=== PATIENT | male | born 1995 ===

== ENCOUNTER 2021-07-12 23:25 | Emergency (ER) | payer BC, OTHER ==
[~2021-07-12] VITALS: Ht 175.3 cm; Wt 74.8 kg
[~2021-07-12 23:25] MED LIST: ALBU18HF2 INH; ALBU6.7H9 INH; Acetaminophen PO; BUDE10.2 INH; DIVA500T4 PO; Gabapentin PO; HYDR-3895 PO; Ibuprofen PO; QUET25TA PO
[2021-07-13] MEDS ORDERED: IV NORMAL SALINE 1000 ML BAG IV ONE
[2021-07-13 00:14] LABS: HEMATOCRIT 40.5 % (36.7-47.1); MEAN CORPUSCULAR HEMOGLOBIN 29.6 uug (23.8-33.4); MEAN CORPUSCULAR VOLUME 87.5 fL (73.0-96.2); PLATELET COUNT (AUTO) 238 K/uL (152-348)
[2021-07-13 00:18] LABS: ETHANOL < 3 MG/DL (0-0)
[2021-07-13 00:19] LABS: CARBON DIOXIDE 30 mmol/L (21-32); CHLORIDE 100 mmol/L (98-107); CREATININE 0.9 mg/dL (0.6-1.3); GLUCOSE 102 mg/dL (74-106); POTASSIUM 3.8 mmol/L (3.5-5.1); UREA NITROGEN, BLOOD 13 mg/dL (7-18)
[2021-07-13 00:26] LABS: ALANINE AMINOTRANSFERASE 27 U/L (16-63); ALKALINE PHOSPHATASE 51 U/L (50-136); ASPARTATE AMINOTRANSFERASE 25 U/L (15-37); BILIRUBIN,DIRECT 0.1 mg/dL (0.0-0.2); BILIRUBIN,TOTAL 0.2 mg/dL (0.2-1.0); TOTAL PROTEIN, SERUM 7.1 g/dL (6.4-8.2)
--- NOTE | 2021-07-13 01:42 | NUR ---
Note tracy in ED - 07/13/21 at 0154 by EMILY IV removed. Catheter intact and site benign. Pressure and 4x4 gauze applied to site. No bleeding noted.
--- NOTE | 2021-07-13 01:44 | NUR ---
Narayan molina in ED - 07/13/21 at 0154 by EMILY Patient discharged to home in stable condition. Written and verbal after care instructions given. Patient verbalizes understanding of instructions. Stressed follow up or return to ER for worsening s/s.
[2021-07-13] MEDS ORDERED: NALO4SPR NS (06:32)
--- NOTE | 2021-07-13 07:06 | NUR ---
IV removed. Catheter intact and site benign. Pressure and 4x4 gauze applied to site. No bleeding noted.
[2021-07-13 07:33] VITALS: BP 116/64
== END 2021-07-13 07:34 | disposition home or self-care (01) ==
LOC: ER 23:31
DX: T40.411A Poisoning by fentanyl or fentanyl analogs, accidental (unintentional), initial encounter (principal); R06.02 Shortness of breath; Y92.192 Bathroom in other specified residential institution as the place of occurrence of the external cause; R00.0 Tachycardia, unspecified; I45.10 Unspecified right bundle-branch block
CPT/HCPCS: 36415; 70030-TC; 71045; 85025; 93005; G0480; J7030